=== PATIENT | male | born 1980 | race Caucasian/White ===

== ENCOUNTER 2018-03-08 13:19 | Emergency (ER) | payer MEDICAID, SELFPAY ==
[2018-03-08 13:26] VITALS: PULSE 78; RESP 18; TEMP 36.8; O2SAT 97
--- NOTE | 2018-03-08 14:04 | DI.RPTCT_ITS ---
SYMPTOMS/DIAGNOSIS: S/P FALL, ? ACUTE INTRACEREBRAL ABNORMALITY, ? CERVICAL FX , ? ACUTE RIB FX CT OF THE CERVICAL SPINE: There is no evidence of fracture. The alignment appears normal. There is no prevertebral soft tissue swelling. The airway appears intact. There are minimal degenerative disc changes. No pneumothorax is seen at the lung apices. 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 IMPRESSION: No acute abnormality. NONCONTRAST HEAD CT: There is a nondisplaced fracture of the left occipital skull. The margins appear smooth, consistent with an old fracture. There is no surrounding soft tissue swelling or intracranial hemorrhage. The ventricles are normal in size. There is no evidence of infarct or mass. The mastoid air cells appear clear. There is mild sinus mucosal thickening. IMPRESSION: Old left occipital skull fracture. No acute abnormality. PA AND LATERAL CHEST: Comparison is made with October,. The cardiac and mediastinal contours have a normal appearance. There are multiple old bilateral rib fractures. No pneumothorax, infiltrate or effusion is seen. No acute rib fracture is visible. IMPRESSION: Old bilateral rib fractures. No acute abnormality. LUMBAR SPINE: There is partial lumbarization of S1. No acute fracture is seen. There is mild deformity of the anterior aspect of the superior endplate of L5. No acute fractures are identified. The alignment appears normal. The SI joints are unremarkable. IMPRESSION: No acute abnormality.
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
[2018-03-08] MEDS: Acetaminophen 325 MG TAB 650 MG PO (14:22)
[2018-03-08 16:22] VITALS: BP 111/66; PULSE 52; RESP 18; TEMP 36.7; O2SAT 97
[2018-03-08 16:53] VITALS: BP 111/66; PULSE 52; RESP 18; TEMP 36.7; O2SAT 97
== END 2018-03-08 16:53 | disposition home or self-care (01) ==
PROVIDERS: Emergency Provider Physician Assistant
DX: S09.90XA Unspecified injury of head, initial encounter (principal); M54.2 Cervicalgia; S20.221A Contusion of right back wall of thorax, initial encounter; S30.0XXA Contusion of lower back and pelvis, initial encounter; L23.7 Allergic contact dermatitis due to plants, except food; W12.XXXA Fall on and from scaffolding, initial encounter; Y99.0 Civilian activity done for income or pay
CPT/HCPCS: 99284; 70450; 71046; 72110; 72125; 99285; L0172

== ENCOUNTER 2019-09-27 16:40 | Emergency (ER) | payer MEDICAID, SELFPAY ==
[2019-09-27 16:53] VITALS: BP 128/79; PULSE 71; RESP 16; TEMP 36.4; O2SAT 98
--- NOTE | 2019-09-27 18:06 | ED.GENADUL_ITS ---
Discharge Plan Disposition Patient Disposition: HOME Condition: Good Discharge Details Chief Complaint: Laceration Clinical Impression: Laceration of chest Primary Care Provider: None,None ED Provider: Annelise Morelos Home Meds and New Rx's Prescriptions: Continued quetiapine [Seroquel] 50 mg Tablet 50 RF: 0 fluoxetine [Prozac] 40 mg Capsule 40 mg RF: 0 Discharge Instructions Instructions: Laceration (ED) Additional Instructions: Keep wound clean, dry, covered. Please monitor for signs infection including redness, warmth, drainage, increased pain, fever/chills. If develop these or other new/worsening symptom please seek care urgently once again. Please keep this current dressing on for the next 24 hours. After that time, you may remove this and shower. Cover with Band-Aid after that time. Tylenol and ibuprofen as needed for discomfort. Please return in 10 days for wound assessment and suture removal. Referral has been placed for a local primary care, you should hear in the next few days. Discharge Data Discharge Date/Time-TO BE ENTERED AT DEPARTURE: 09/27/19 18:32 Medical Decision Making Patient is a pleasant 38-year-old male, accompanied by his significant other, with chief complaint of laceration to his left chest wall. Arrival he was by a friend move furniture. They were carrying a glass table when he tripped and fell forward landing on the coffee table through the glass. Sustained laceration to left chest wall. No other injury at the time of the incident. Does not believe that he is up-to-date on tetanus. Patient has been applying a towel and direct pressure to the wound but despite this he reports the return of your ribs the tile he does have arterial bleeding from the chest wall. Denies any shortness of breath, difficulty breathing. Reports only minimal discomfort associated with this. No recent travel. On exam, patient does have a 14 cm curvilinear laceration running vertically down the left side of his anterior chest wall. This is into the muscle. He does have 2 arterial bleeders that are quite prominent when pressure is removed. Wound was probed with a Q-tip by myself as well has advised the general surgeon who happened to be in the department. The wound does not continue deeper, no crepitus. Lungs are clear. No evidence of respiratory distress. Vital signs within normal limits. Pressure was immediately applied by myself once again. Cautery was initially used to control of the arterial bleeders but the other had to be stopped using [id number] stitch. With a bleeding control, patient never able to discuss further options for treatment. We discussed her/benefits as well as expected procedural steps of suture closure. He voiced understanding and wished to proceed. Please see procedure note. Lidocaine with epinephrine was used to further control bleeding and help with anesthesia. This worked well for the patient. Wound was copiously irrigated explored to base in bloodless field no foreign body or debris noted. #7 Vicryl stitches were placed into the muscle as well as subcutaneous tissue. Superficially, the skin was closed with simple interrupted stitches, 13 replaced. Patient tolerated this well. Pressure dressing was applied by nursing staff. Were able to determine that his last tetanus was updated in 2017. Patient was given strict return precautions, particularly discussed signs and use of infection when to seek care urgently once again. He does not have a local primary care, I have asked her career technical education instructor help arrange for routine follow-up with primary care. He will return here in 10 days for wound evaluation and suture removal. All of his questions and concerns were addressed and he is in agreement this plan. HPI General Mode of arrival: ambulatory . Date/Time Provider Initiated Documentation: 09/27/19 16:50 . Limitations to Documentation: no limitations . Information obtained by: patient, family (significant other) and RN notes reviewed . History of Present Illness 38 year old M presents to the emergency department with the chief complaint of laceration left anterior chest, described as mild, with intensity rated at 2. Quality is described as aching, and is localized to the chest. Patient reports no radiation. Patient started experiencing this hour(s) (1) and it has been constant. No relieving factors improve symptom(s), No exacerbating factors reported . Patient notes denies chest pain (states that pain is superficial), cough, fever/chills, headaches, loss of appetite, nausea/vomiting, rash, shortness of breath and weakness. Patient did receive the following treatments prior to arrival, none Related Data Home Medications Medication Instructions Recorded Confirmed fluoxetine [Prozac] 40 mg 09/27/19 quetiapine [Seroquel] 50 09/27/19 Allergies Allergy/AdvReac Type Severity Reaction Status Date / Time hydrocodone [From Vicodin] Allergy Intermediate Hives Unverified 09/27/19 16:56 General Stated Complaint: Laceration JIMMY: 3 Review of Systems Constitutional Constitutional: Reports as per HPI, Denies chills and Denies fever(s) Musculoskeletal Musculoskeletal: Reports as per HPI Integumentary/Breasts Skin/Breast: Reports as per HPI Neurologic Neurologic: Reports as per HPI, Denies sensory deficit and Denies paresthesias [facility] Social History Smoking/Tobacco Use Status: Current every day Tobacco Type: cigarettes Substance use type: marijuana Do you feel safe at home: Yes Do you feel safe in your relationship?: Yes Exam Const General: cooperative, healthy appearing, comfortable, no acute distress and well developed Nutritional Appearance: average body habitus and well nourished Orientation: alert and awake Chest Chest: abnormal inspection of the chest (laceration as drawn below), no crepitus and no localized rib tenderness Chest/axillae images: 1. 14cm laceration into the muscle layer. Wound was probed, underlying structures intact. No crepitus. Patient has 2 arterial bleeding vessels. Resp Effort & Inspection: normal respiratory effort, able to speak in complete sentences and no respiratory distress Auscultation: clear to auscultation bilaterally Cardio Rate: regular rate Rhythm: regular rhythm Heart Sounds: S1 normal and S2 normal GI Inspection: normal to inspection, non-distended and no obesity Palpation: soft and nontender Skin Trauma: laceration (as drawn above) Neuro General: alert and awake Cognition: normal cognition Speech: speech normal Gait: normal gait Sensory Exam: no sensory deficits noted Psych Appearance: grossly normal and well kempt Mental Status: mental status grossly normal Speech and Movement: speech and movement normal Course Vital Signs Vital signs: Vital Signs Temperature 36.4 C L 09/27/19 16:53 Pulse 71 09/27/19 16:53 Respiratory Rate 16 09/27/19 16:53 Blood Pressure 128/79 09/27/19 16:53 Pulse Oximetry 98 09/27/19 16:53 Temperature 36.4 C L 09/27/19 16:53 Temperature Source Axillary 09/27/19 16:53 Pulse 71 09/27/19 16:53 Respiratory Rate 16 09/27/19 16:53 Respiratory Effort Non-Labored 09/27/19 16:55 Blood Pressure 128/79 09/27/19 16:53 Blood Pressure Position Sitting 09/27/19 16:53 Pulse Oximetry 98 09/27/19 16:53 Oxygen Delivery Method Room Air 09/27/19 16:53 Oxygen Flow Rate 0 09/27/19 16:53 Pain Level 2 09/27/19 17:47 Procedures Laceration Laceration 1: Site: chest Side (If applicable): left Size (cm): 14 Description: linear Depth: involves muscle layer Local Anesthetic: Lidocaine 1% and with Epi Amount of anesthesia used (mL): 15 Pre-repair: wound explored, irrigated extensively and deep structures intact (deep to muscles, intact) Skin layer closed with: nylon Size (cm): 4-0 and 5-0 Number of sutures: 13 Technique: simple, interrupted Subcutaneous layer closed with: vicryl Size: 4-0 Number of sutures: 7 Technique: simple, interrupted
--- NOTE | 2019-09-28 08:23 | NUR.NOTE ---
Copy of referral in Care Management box. Nursing Note:
== END 2019-09-27 18:32 | disposition home or self-care (01) ==
PROVIDERS: Emergency Provider Physician Assistant
DX: S21.112A Laceration without foreign body of left front wall of thorax without penetration into thoracic cavity, initial encounter (principal); W01.110A Fall on same level from slipping, tripping and stumbling with subsequent striking against sharp glass, initial encounter; W25.XXXA Contact with sharp glass, initial encounter
CPT/HCPCS: 12035; 90471

== ENCOUNTER 2019-10-01 08:21 | Emergency (ER) | payer MEDICAID, SELFPAY ==
[2019-10-01 08:24] VITALS: BP 110/69; PULSE 82; RESP 15; TEMP 36.8; O2SAT 98
--- NOTE | 2019-10-01 08:29 | ED.GENADUL_ITS ---
Discharge Plan Disposition Patient Disposition: HOME Condition: Stable Discharge Details Chief Complaint: Cellulitis Clinical Impression: Cellulitis of chest wall Primary Care Provider: None,None ED Provider: Brandee Royal Home Meds and New Rx's Prescriptions: New clindamycin HCl 150 mg capsule 450 mg PO TID 7 Days Qty: 63 RF: 0 mupirocin 2 % ointment 1 applic TP BID Qty: 15 RF: 0 Continued quetiapine [Seroquel] 50 mg Tablet 50 mg PO DAILY RF: 0 fluoxetine [Prozac] 40 mg Capsule 40 mg RF: 0 Discharge Instructions Instructions: Cellulitis (ED) Additional Instructions: Keep area clean and dry. Wash the area with soap and water and then pat dry. Apply topical antibiotic ointment as directed. Take the oral antibiotics until finished. You can try taking probiotics or yogurt while on the antibiotics to prevent nausea, vomiting or diarrhea. Return to the emergency department on October 06 for suture removal. Return to the emergency department earlier at any time if you develop any worsening or new concerning symptoms such as fever, worsening redness, pain or swelling. Discharge Data Discharge Date/Time-TO BE ENTERED AT DEPARTURE: 10/01/19 08:45 Discharge Physician: Brandee Royal Medical Decision Making 38-year-old male presents for evaluation of left chest wound status post suture placement 4 days ago after patient sustained a chest laceration in which he fell carrying a glass table. Patient had 13 nylon sutures placed which appear intact. He has erythema, edema and induration of skin surrounding the wound consistent with cellulitis. There is no fluctuance, drainage or bleeding. No evidence of abscess. Patient appears nontoxic. Patient instructed on proper wound care. Will cover with mupirocin and clindamycin. Advised to return to the ER for suture removal on October 06. Usual and customary return precautions given prior to discharge. Medical Records Medical records reviewed: Yes I reviewed the patient's medical records. HPI General Mode of arrival: ambulatory . Date/Time Provider Initiated Documentation: 10/01/19 08:23 . Limitations to Documentation: no limitations . Information obtained by: patient . History of Present Illness 38 year old M presents to the emergency department with the chief complaint of Redness, pain, swelling around sutures on chest wall, described as moderate, Quality is described as aching, and is localized to the chest. Patient reports radiation to (To left axilla). Patient started experiencing this day(s) (4) and it has been constant. No relieving factors improve symptom(s), No exacerbating factors reported . Patient notes denies fever/chills and shortness of breath. Patient did receive the following treatments prior to arrival, none Related Data Home Medications Medication Instructions Recorded Confirmed fluoxetine [Prozac] 40 mg 09/27/19 quetiapine [Seroquel] 50 mg PO DAILY 09/27/19 10/01/19 clindamycin HCl 450 mg PO TID 7 Days #63 cap 10/01/19 mupirocin 1 applic TP BID #15 gm 10/01/19 Previous Rx's Medication Instructions Recorded clindamycin HCl 450 mg PO TID 7 Days #63 cap 10/01/19 mupirocin 1 applic TP BID #15 gm 10/01/19 Allergies Allergy/AdvReac Type Severity Reaction Status Date / Time hydrocodone [From Vicodin] Allergy Intermediate Hives Unverified 10/01/19 08:28 General Stated Complaint: Cellulitis JIMMY: 3 Review of Systems All systems reviewed & are unremarkable except as noted in HPI and below Constitutional Constitutional: Reports as per HPI, Denies chills and Denies fever(s) Eyes Eyes: Denies blurry vision ENT Ears, Nose, Mouth, and Throat: Denies dizziness, Denies sore throat and Denies throat swelling Cardiovascular Cardiovascular: Denies chest pain and Denies dyspnea Respiratory Respiratory: Denies cough and Denies dyspnea Gastrointestinal Gastrointestinal: Denies abdominal pain, Denies diarrhea and Denies vomiting Genitourinary Genitourinary: Denies hematuria and Denies dysuria Musculoskeletal Musculoskeletal: Denies back pain and Denies numbness Integumentary/Breasts Skin/Breast: Reports lesions and Denies rash Neurologic Neurologic: Denies dizziness, Denies focal weakness and Denies numbness Allergic/Immunologic Allergic/Immunologic: Denies throat swelling [facility] Social History Smoking/Tobacco Use Status: Current every day Tobacco Type: cigarettes Substance use type: marijuana Do you feel safe at home: Yes Do you feel safe in your relationship?: Yes Exam Const General: cooperative, healthy appearing and no acute distress HENMT Head: normal to inspection Mouth: oral mucosae normal Eyes General: appearance normal, both eyes and all related structures Neck Neck: normal visual inspection, full ROM, trachea midline, supple, no anterior neck swelling and No submandibular swelling Chest Chest/axillae images: 1. 13 nylon sutures noted in place and intact. There is a moderate amount of erythema extending approximately 3 cm circumferentially around wound. The area is tender, edematous and indurated. There is no fluctuance, bleeding or drainage. Resp Effort & Inspection: normal respiratory effort and able to speak in complete sentences Auscultation: clear to auscultation bilaterally Cardio Rate: regular rate Rhythm: regular rhythm Skin General skin exam: no rashes or lesions noted Neuro General: alert, awake and oriented x3 Motor: muscle tone normal throughout Extrem General: normal to inspection and full ROM Psych Appearance: grossly normal Affect: normal affect Course Vital Signs Vital signs: Vital Signs Temperature 98.2 F 10/01/19 08:24 Pulse 82 10/01/19 08:24 Respiratory Rate 15 10/01/19 08:24 Blood Pressure 110/69 10/01/19 08:24 Pulse Oximetry 98 10/01/19 08:24 Temperature 98.2 F 10/01/19 08:24 Temperature Source Oral 10/01/19 08:24 Pulse 82 10/01/19 08:24 Respiratory Rate 15 10/01/19 08:24 Respiratory Effort Non-Labored 10/01/19 08:27 Blood Pressure 110/69 10/01/19 08:24 Blood Pressure Position Sitting 10/01/19 08:24 Pulse Oximetry 98 10/01/19 08:24 Oxygen Delivery Method Room Air 10/01/19 08:24 Oxygen Flow Rate 0 10/01/19 08:24 Pain Level 7 10/01/19 08:24
== END 2019-10-01 08:45 | disposition home or self-care (01) ==
LOC: ER 08:42
PROVIDERS: Emergency Provider Physician Assistant
DX: S21.112A Laceration without foreign body of left front wall of thorax without penetration into thoracic cavity, initial encounter (principal); W26.8XXA Contact with other sharp object(s), not elsewhere classified, initial encounter; L03.313 Cellulitis of chest wall
CPT/HCPCS: 99283

== ENCOUNTER 2021-03-13 09:06 | Outpatient (CLI) | payer MEDICAID, SELFPAY ==
--- NOTE | 2021-03-13 09:45 | DI.US_ITS ---
Exam(s) US SCROTUM EXAM: US SCROTUM CLINICAL HISTORY: R testicle: Deep lump in superior portion (top), N50.89 TECHNIQUE: Ultrasound of the testes performed using grayscale, color, and Doppler imaging. COMPARISON: No exams were available for comparison FINDINGS: RIGHT HEMISCROTUM: The right testicle exhibits normal size and echo architecture with no evidence of intratesticular mas s. Vascular flow was demonstrated within the right testicle, including arterial waveforms. No prominent hydrocele nor varicocele. There is a 10 x 8 x 10 millimeter extratesticular cyst which appears eccentric within the epididymal head. There is a 2nd smaller 6 x 5 by 5 millimeter spermatoc patt on the opposite side of the epididymal head. LEFT HEMISCROTUM: The left testicle exhibits normal size and echo architecture with no evidence of intratesticular mass . Vascular flow is demonstrated within the left testicle, including arterial waveforms. The epididymis appears unremarkable. There are no epididymal head cysts. No hydrocele. Small varicocele noted. IMPRESSION: 1. No evidence of testicular mass nor testicular torsion. 2. There are 2 epididymal head cysts on the right side, these measuring 10 x 8 and 6 x 5 millimeter. Similar findings are not seen on the left side. 3. No prominent hydroceles. Small varicocele noted on the left side. DATA REPOSITORY:
== END 2021-03-13 09:26 ==
PROVIDERS: PCP Nurse Practitioner Adult Health; Visit Provider Nurse Practitioner Adult Health
DX: N50.3 Cyst of epididymis (principal); I86.1 Scrotal varices
CPT/HCPCS: 76870